=== PATIENT | female | born 1965 | race Caucasian/White ===

== ENCOUNTER 2017-09-05 13:54 | Outpatient (CLI) | payer OTHER ==
--- NOTE | 2017-09-05 15:22 | RAD ---
RIGHT KNEE TWO VIEWS: History: Right knee pain. Disability evaluation. FINDINGS: There are degenerative changes in the right knee. No fracture or dislocation is identified. IMPRESSION: Right knee osteoarthritis. POS: [facility]
== END 2017-09-05 13:55 | disposition home or self-care (01) ==
LOC: NAV RAD 13:54
PROVIDERS: ATTEND Family Medicine
DX: M15.9 Polyosteoarthritis, unspecified (principal); E11.40 Type 2 diabetes mellitus with diabetic neuropathy, unspecified; I10 Essential (primary) hypertension; H53.8 Other visual disturbances; Z68.44 Body mass index [BMI] 60.0-69.9, adult